=== PATIENT | female | born 1970 | race Asian ===

== ENCOUNTER → 2019-06-21 17:30 | Outpatient (CLI) | payer OTHER, SELFPAY ==
--- NOTE | 2019-06-21 17:32 | DI.MRI.S_ITS ---
PROCEDURE: MR LUMBAR SPINE WO CON INDICATIONS: RADICULOPATHY LUMBAR REGION TECHNIQUE: Noncontrast sagittal T1 spin echo and T2 fast echo, sagittal STIR, axial T1 and T2 fast spin echo through the lumbar spine. In cases with scoliosis, additional coronal T2 fast spin echo may be performed. COMPARISON: None. FINDINGS: Image quality: Excellent. Alignment and Curvature: There is normal bony alignment. Bone Marrow: Marrow is of normal overall signal. No acute vertebral body compression fractures. Spinal Cord: Conus medullaris terminates at the L1 level. Visualized cord demonstrates normal signal and size. Paraspinous Soft Tissues: No paravertebral masses. Discs: Minimal desiccation is present at L4-5. L1-L2: Minimal disc bulge without spinal stenosis or foraminal narrowing. L2-L3: Minimal disc bulge without spinal stenosis or foraminal narrowing. Minimal facet and ligamentum flavum hypertrophy are present. L3-L4: Minimal disc bulge with minimal canal narrowing. Minimal left foraminal narrowing. Mild ligamentum flavum minimal facet hypertrophy. L4-L5: Mild disc bulge with moderate spinal stenosis. Moderate right and mild/moderate left foraminal narrowing including prominent narrowing to the subarticular recess on the right. Facet and ligamentum flavum hypertrophy are present. L5-S1: Minimal disc bulge without spinal stenosis. Minimal right foraminal narrowing. IMPRESSION: 1. Multilevel disc bulges. 2. Moderate spinal stenosis L4-5 secondary to disc bulge with contributing effect of facet/ligamentum flavum arthropathy. 3. Foraminal narrowing most notable at L4-5 secondary to facet arthropathy. Dictated by: Asmita Mera M.D. on 06/24/2019 at 8:07 Approved by: Asmita Mera M.D. on 06/24/2019 at 8:12
== END ==
PROVIDERS: Visit Provider Family Medicine
DX: M54.16 Radiculopathy, lumbar region (principal); M79.661 Pain in right lower leg; R20.2 Paresthesia of skin
CPT/HCPCS: 72148

== ENCOUNTER → 2024-04-10 13:22 | Outpatient (CLI) | payer OTHER, SELFPAY ==
--- NOTE | 2024-04-10 13:25 | DI.MG.S_ITS ---
BILATERAL DIGITAL DIAGNOSTIC MAMMOGRAM 3D/2D: 04/10/2024 CLINICAL: Short term follow up for bilateral breasts. Comparison is made to exams dated: 06/20/2023 mammogram, 09/15/2021 mammogram, and 03/22/2018 mammogram - [facility]. The breasts are heterogeneously dense, which may obscure small masses (category c / 51-75% glandular tissue). There is an oval focal asymmetry in the right breast at 11 o'clock middle depth. This is not significantly changed. There is an oval focal asymmetry in the left breast at 12 o'clock middle depth. This is not significantly changed. There also is an oval equal density focal asymmetry in the left breast at 12 o'clock anterior depth. This is not significantly changed. No other significant masses or calcifications are seen in either breast. IMPRESSION: INCOMPLETE: NEED ADDITIONAL IMAGING EVALUATION The oval focal asymmetry in the right breast at 11 o'clock middle depth resembles a cyst and is indeterminate. An ultrasound is recommended for further evaluation and is scheduled to immediately follow this examination. The oval focal asymmetry in the left breast at 12 o'clock middle depth resembles a cyst and is indeterminate. An ultrasound is recommended for further evaluation and is scheduled to immediately follow this examination. The oval equal density focal asymmetry in the left breast at 12 o'clock anterior depth resembles a cyst and is indeterminate. An ultrasound is recommended for further evaluation and is scheduled to immediately follow this examination. Based on the Tyrer Cuzick model (a risk assessment model) the patient's lifetime risk is 9.9% and her 10 year risk is 2.4%. According to the ACR, ACS, and NCCN guidelines, an annual breast MRI exam along with mammogram is recommended if the patient's lifetime risk is 20% or greater. This exam was interpreted at Station ID: [id number]. NOTE: For mammograms, a report in lay terms will be sent to the patient. Approximately 15% of breast malignancies will not be visualized mammographically. In the management of a palpable breast mass, a negative mammogram must not discourage biopsy of a clinically suspicious lesion. Electronically Signed By: Julian Foley M.D. aty/:04/10/2024 16:50:09 letter sent: Additional Imaging Needed ACR BI-RADS Category 0: Incomplete: Need Additional Imaging Evaluation
--- NOTE | 2024-04-10 13:26 | DI.US.S_ITS ---
LIMITED ULTRASOUND OF LEFT BREAST AND AXILLA: 04/10/2024 CLINICAL: Patient returns for a 6 month follow up of the left breast. Comparison is made to exams dated: 04/10/2024 mammogram - [facility], 06/28/2023 ultrasound, 06/20/2023 mammogram, 10/01/2021 ultrasound, 09/15/2021 mammogram, and 03/22/2018 mammogram - [facility]. Color flow and real-time ultrasound of the left breast 2-3 o'clock, and axilla regions were performed. Zhou scale images of the real-time examination were reviewed. There is a 1 cm x 0.6 cm x 0.9 cm wider than tall oval cyst in the left breast at 2 o'clock anterior depth 3 cm from the nipple. This oval cyst is hypoechoic with a well-defined boundary, internal echoes, and no posterior acoustic shadowing or enhancement. This correlates with mammography findings. Color flow imaging demonstrates that there is no vascularity present. There also is a 0.6 cm x 0.4 cm x 0.6 cm wider than tall oval cyst in the left breast at 3 o'clock middle depth 45 mm from the nipple. This oval cyst is hypoechoic with internal echoes. Color flow imaging demonstrates that there is no vascularity present. Additionally, there is a 0.5 cm x 0.3 cm x 0.4 cm wider than tall oval cyst in the left breast at 2 o'clock middle depth 4 cm from the nipple. This oval cyst is hypoechoic with internal echoes. This correlates as an incidental finding. Color flow imaging demonstrates that there is no vascularity present. In addition, there is a benign 1.2 cm x 0.8 cm x 1 cm wider than tall oval cyst in the left breast at 2 o'clock middle depth 4 cm from the nipple. This oval cyst is anechoic with a well-defined boundary and posterior acoustic enhancement. This correlates with mammography findings. Color flow imaging demonstrates that there is no vascularity present. No significant abnormalities were seen sonographically in the left axilla. IMPRESSION: PROBABLY BENIGN The 1 cm x 0.6 cm x 0.9 cm wider than tall oval cyst in the left breast at 2 o'clock anterior depth is consistent with a complicated cyst and is probably benign. The 0.6 cm x 0.4 cm x 0.6 cm wider than tall oval cyst in the left breast at 3 o'clock middle depth resembles a complicated cyst and is probably benign. The 0.5 cm x 0.3 cm x 0.4 cm wider than tall oval cyst in the left breast at 2 o'clock middle depth is consistent with a complicated cyst and is probably benign. The 1.2 cm x 0.8 cm x 1 cm wider than tall oval cyst in the left breast at 2 o'clock middle depth is consistent with a simple cyst and is benign. A follow-up left mammogram and an ultrasound in 6 months is recommended to demonstrate stability. Findings and recommendations were conveyed to the patient during today's evaluation. This exam was interpreted at Station ID: [id number]. Electronically Signed By: Julian Foley M.D. at/:04/10/2024 17:06:05 letter sent: Followup Recommended ACR BI-RADS Category 3: Probably Benign
--- NOTE | 2024-04-10 13:26 | DI.US.S_ITS ---
LIMITED ULTRASOUND OF RIGHT BREAST AND AXILLA: 04/10/2024 CLINICAL: Patient returns for a 6 month follow up of the right breast. Comparison is made to exams dated: 04/10/2024 mammogram - [facility], 06/28/2023 ultrasound, 06/20/2023 mammogram, 10/01/2021 ultrasound, 09/15/2021 mammogram, and 03/22/2018 mammogram - [facility]. Color flow and real-time ultrasound of the right breast 11 o'clock, and axilla regions were performed. Zhou scale images of the real-time examination were reviewed. There is a 0.7 cm x 0.6 cm x 0.7 cm oval cyst in the right breast at 11 o'clock middle depth 5 cm from the nipple. This oval cyst is hypoechoic. This abnormality is not significantly changed and correlates with mammography findings. Color flow imaging demonstrates that there is no vascularity present. There is also a stable benign simple cyst noted adjacently measuring 0.5cm in size at the 11 o'clock 5cm from the nipple. IMPRESSION: PROBABLY BENIGN The 0.7 cm x 0.6 cm x 0.7 cm oval cyst in the right breast is consistent with a complicated cyst and is probably benign. A follow-up right mammogram and an ultrasound in 6 months is recommended to demonstrate stability. Findings and recommendations were conveyed to the patient during today's evaluation. This exam was interpreted at Station ID: [id number]. Electronically Signed By: Julian Foley M.D. aty/:04/10/2024 16:54:57 letter sent: Followup Recommended ACR BI-RADS Category 3: Probably Benign
== END ==
LOC: MAMMO 13:25
DX: R92.8 Other abnormal and inconclusive findings on diagnostic imaging of breast (principal); N60.01 Solitary cyst of right breast; N60.02 Solitary cyst of left breast; D24.9 Benign neoplasm of unspecified breast; Z76.89 Persons encountering health services in other specified circumstances
CPT/HCPCS: 76642; 77066; G0279

== ENCOUNTER → 2024-11-13 09:38 | Outpatient (CLI) | payer OTHER, SELFPAY ==
--- NOTE | 2024-11-13 09:39 | DI.MG.S_ITS ---
MM diagnostic mammo BI, US breast BI limited: 11/13/2024 BI-RADS: 3 CLINICAL: 54-year old female for bilateral diagnostic mammogram and bilateral diagnostic breast ultrasound. Tyrer-Cuzick lifetime risk of 6.7%. No personal or first-degree family history of breast cancer. PRIOR EXAMS 04/10/2024, 06/28/2023, 06/20/2023, 10/01/2021, 09/15/2021, and 03/22/2018. MAMMOGRAPHY TECHNIQUE: 2D and 3D (tomosynthesis) digital mammographic views obtained, with additional images as needed for full coverage. Current study was also evaluated with a Computer Aided Detection (CAD) system. ULTRASOUND TECHNIQUE: Real-time strong scale and color doppler imaging of the area of clinical interest was performed with image documentation. DENSITY C. The breasts are heterogeneously dense, which may obscure small masses. MAMMOGRAPHY FINDINGS Bilateral: There are multiple bilateral round and oval circumscribed masses, not significantly changed since outside screening mammogram in May 2023. ULTRASOUND FINDINGS Right: Upper Outer at 11:00, 5 cm from nipple, measuring 0.8 x 0.5 x 0.4 cm: There is a simple anechoic cyst. This finding is stable since outside ultrasound in June 2023. Right: Upper Outer at 11:00, 5 cm from nipple, measuring 0.6 x 0.7 x 0.6 cm: There is a circumscribed, hypoechoic cyst vs solid mass present. Doppler shows no vascularity. This finding is stable since outside ultrasound in June 2023. Left: Outer at 2:30, 3 cm from nipple, measuring 1.2 x 0.8 x 0.6 cm: There is an oval, circumscribed, hypoechoic cyst vs solid mass present. Doppler shows no vascularity. This finding is stable since outside ultrasound in June 2023. Left: Upper Outer at 2:00, 4 cm from nipple, measuring 0.9 x 0.9 x 0.7 cm: There is a circumscribed, hypoechoic cyst vs solid mass present. Doppler shows no vascularity. This finding is stable since outside ultrasound in June 2023. Left: Upper Outer at 2:30, 4.5 cm from nipple, measuring 0.4 x 0.4 x 0.3 cm: There is a complicated cyst with low level echoes. This finding is stable since outside ultrasound in June 2023. Left: Outer at 2:30, 4.5 cm from nipple, measuring 0.4 x 0.5 x 0.3 cm: There is a complicated cyst with low level echoes. This finding is stable since outside ultrasound in June 2023. IMPRESSION: Right (Simple Cyst): Upper Outer at 11:00, 5 cm from nipple, measuring 0.8 x 0.5 x 0.4 cm * Probably Benign. Right (CvS): Upper Outer at 11:00, 5 cm from nipple, measuring 0.6 x 0.7 x 0.6 cm * Probably Benign. Left (CvS): Outer at 2:30, 3 cm from nipple, measuring 1.2 x 0.8 x 0.6 cm * Probably Benign. Left (CvS): Upper Outer at 2:00, 4 cm from nipple, measuring 0.9 x 0.9 x 0.7 cm * Probably Benign. Left (Complicated Cyst): Upper Outer at 2:30, 4.5 cm from nipple, measuring 0.4 x 0.4 x 0.3 cm * Probably Benign. Left (Complicated Cyst): Outer at 2:30, 4.5 cm from nipple, measuring 0.4 x 0.5 x 0.3 cm * Probably Benign. RECOMMENDATIONS Right: Upper Outer at 11:00, 5 cm from nipple * Seven month followup with diagnostic mammography and diagnostic ultrasound to demonstrate 2 year stability. Right: Upper Outer at 11:00, 5 cm from nipple * Seven month followup with diagnostic mammography and diagnostic ultrasound to demonstrate 2 year stability. Left: Outer at 2:30, 3 cm from nipple * Seven month followup with diagnostic mammography and diagnostic ultrasound to demonstrate 2 year stability. Left: Upper Outer at 2:00, 4 cm from nipple * Seven month followup with diagnostic mammography and diagnostic ultrasound to demonstrate 2 year stability. Left: Upper Outer at 2:30, 4.5 cm from nipple * Seven month followup with diagnostic mammography and diagnostic ultrasound to demonstrate 2 year stability. Left: Outer at 2:30, 4.5 cm from nipple * Seven month followup with diagnostic mammography and diagnostic ultrasound to demonstrate 2 year stability. COMMENTS: Findings and recommendations were conveyed to the patient during today's evaluation. OVERALL ASSESSMENT CATEGORY BI-RADS-3: Probably Benign. ELECTRONICALLY SIGNED: Jessica Alvarez M.D. on 11/15/2024 at 05:02:30 PM PT Interpreting Station ID: [id number]
== END ==
DX: N60.02 Solitary cyst of left breast (principal); N60.01 Solitary cyst of right breast
CPT/HCPCS: 76642; 77066; G0279